=== PATIENT | male | born 1955 | race Caucasian/White ===

== ENCOUNTER 2018-02-11 10:16 | Inpatient (IN) | payer BC, SELFPAY ==
[~2018-02-11 10:16] MED LIST: ISOVUE-370 76%-LOCM 1 ML ONE; Iopamidol 370 76% 50 ML VIAL FS ONE
[2018-02-11] MEDS ORDERED: Ondansetron HCl/PF 4 MG/2 ML Vial ONE (10:55)
[2018-02-11] MEDS ORDERED: Morphine 4 MG/ML VIAL ONE ×3 (10:55→15:10)
[2018-02-11 11:02] LABS: #Lymphocytes 0.7 thou/uL (1.20-3.40); #Monocytes 0.5 thou/uL (0.11-0.59); #Neutrophils 13.4 thou/uL (1.40-6.50); %Basophils 0.2 % (0.0-1.0); %Lymphocytes 4.7 % (21.0-51.0); %Monocytes 3.4 % (0.0-10.0); %Neutrophils 91.6 % (42.0-75.0); Hemoglobin 16.7 g/dL (14.0-18.0); Mean Corpuscular HGB CONC 34.7 g/dL (32.0-36.0); Mean Corpuscular Hemoglobin 32.9 pg (27.0-31.0); Mean Corpuscular Volume 94.7 fL (78.0-98.0); Mean Platelet Volume 6.6 fL (7.4-10.4); Platelet Count 254 thou/uL (130-400); RBC Distribution Width 11.9 % (11.5-14.5); Red Blood Cell (RBC) Count 5.08 mill/uL (4.70-6.10); White Blood Cell (WBC) Count 14.7 thou/uL (4.8-10.8)
[2018-02-11 11:35] LABS: Troponin I Less than 0.010 ng/mL (< 0.028)
[2018-02-11 11:38] LABS: ALT (SGPT) 13 U/L (8-55); AST (SGOT) 12 U/L (5-34); Albumin 4.4 g/dL (3.4-4.8); Alkaline Phosphatase 93 U/L (40-150); Anion Gap 13 mmol/L (10-20); BUN (Urea Nitrogen) 11 mg/dL (8.4-25.7); Bilirubin, Total 0.7 mg/dL (0.2-1.2); Calc. Creatinine Clearance 0 mL/min (70-130); Calcium 9.9 mg/dL (7.8-10.44); Carbon Dioxide 25 mmol/L (23-31); Chloride 100 mmol/L (98-107); Estimated GFR-MDRD 81; Globulin 3.2 g/dL (2.4-3.5); Glucose 208 mg/dL (80-115); Lipase Less than 4 U/L (8-78); Potassium 4.1 mmol/L (3.5-5.1); Protein, Total 7.6 g/dL (5.8-8.1); Sodium 134 mmol/L (136-145)
--- NOTE | 2018-02-11 11:45 | RAD ---
CHEST 1 VIEW: Date: 02/11/18 HISTORY: Nausea and vomiting. COMPARISON: None. FINDINGS: Lungs are hyperinflated. There are chronic interstitial markings in the lung bases. Right upper lobe peripheral interstitial markings are present, which may reflect scarring. Coronary artery stents are present. No acute osseous abnormality. There appears to be some bronchiectasis in the right upper lobe. IMPRESSION: Obstructive pulmonary disease with fibrosis. POS: [facility]
[2018-02-11 13:01] LABS: Bilirubin Negative (Negative); Blood, Urine Trace (Negative); Clarity CLEAR (Clear); Glucose, Urine (Dipstick) 250 mg/dL (Negative); Leukocyte Negative (Negative); Nitrite Negative (Negative); Protein, Urine (Dipstick) Negative (Neg-Trace); Specific Gravity, Urine 1.019 (1.002-1.036); Urobilinogen 0.2 mg/dL (0.2-1.0); pH, Urine 6.5 (5.0-9.0)
[2018-02-11 13:03] LABS: Bacteria/HPF None Seen HPF (None Seen); Hyaline Casts/LPF 0-3 HYALINE CAST LPF (0-3 Hyaline); Squamous Epithelial 0-3 HPF (0-3); WBC/HPF 0-3 HPF (0-3)
--- NOTE | 2018-02-11 14:27 | CT ---
CT ABDOMEN AND PELVIS WITH CONTRAST: Date: 02/11/18 HISTORY: Right-sided abdominal pain. Nausea and vomiting. COMPARISON: None. FINDINGS: Lung bases are clear. No pericardial effusion. There is acute appendicitis with dilated hyperenhancing thick-walled appendix with two small appendic oliths at its tip, both measuring 3.0 mm. There is extensive periappendiceal inflammatory stranding. No macroperforation. The liver and gallbladder are unremarkable. Pancreas unremarkable. Adrenal glands are unremarkable. N o hydroureteronephrosis. Extensive vascular calcifications at the aortoiliac system. Large volume soft plaque. Prostate mildly enlarged. No acute osseous abnormality. IMPRESSION: Acute appendicitis with the appendix posterior to the cecum which extends craniad near the liver. The re are two separate 3.0 mm appendicoliths near the tip. An attempt to contact provider was performed at 1325 hours; however, patient's provider was unable to come to the phone. POS: [facility]
[2018-02-11] MEDS ORDERED: Piperacillin/Tazobactam 4.5 GM VIAL ONE (15:10)
[2018-02-11] MEDS ORDERED: Ondansetron ODT 4 MG TAB SL PRN (17:10)
[2018-02-11] MEDS ORDERED: Ondansetron HCl/PF 4 MG/2 ML Vial IVP PRN ×2 (17:10→17:14)
[2018-02-11] MEDS ORDERED: Acetaminophen 325 MG TAB PO PRN (17:10)
[2018-02-11] MEDS ORDERED: hydrALAZINE 20 MG/ML VIAL SLOW IVP PRN (17:14)
[2018-02-11] MEDS ORDERED: Famotidine/PF 20 mg/2ml Vial SLOW IVP PRN (17:14)
[2018-02-11 17:33] VITALS: BMI 20.9
[2018-02-11] MEDS: Morphine 4 MG/ML VIAL SLOW IVP PRN ×2 (17:46→22:25)
[2018-02-11] MEDS: Sodium Chloride 0.9% 1,000 ML IV SCH ×2 (17:49→20:44)
--- NOTE | 2018-02-11 18:29 | CON ---
DATE OF CONSULTATION: 02/11/2018 CARDIOLOGY CONSULTATION REASON FOR CONSULTATION: Preoperative evaluation. HISTORY OF PRESENT ILLNESS: Mr. Renteria is a pleasant 62-year-old white gentleman who comes to the [facility] for abdominal pain. He was diagnosed with acute appendicitis and is scheduled to have an appe ndectomy later this evening. He denies any chest pain, tightness, pressure. He has chronic shortnes s of breath, likely from some level of COPD as he continues to smoke. He also has a history of coron eliza artery disease with a stent placed by [facility] physician back in 2011. He followed up wit h them up until about a year to year and a half ago and he has been followed since. He has never had the symptoms he had back when he needed a stent. Currently, his only complaint is right lower quadr ant pain. PAST MEDICAL HISTORY: 1. Coronary artery disease. 2. Hypertension. SOCIAL HISTORY: Continues to smoke a pack a day. No alcohol or drugs. OUTPATIENT MEDICATIONS: None. ALLERGIES: No known drug allergies. REVIEW OF SYSTEMS: A 12-point review of systems was done and is all negative unless stated in the hi story of present illness. PHYSICAL EXAMINATION: VITAL SIGNS: Temperature 100.4, pulse 99, respiration rate 24, satting 89% on room air, blood pressu re 117/66. GENERAL: Awake, alert, oriented x3, in no distress. HEENT: Normocephalic, atraumatic. NECK: Supple. LUNGS: Clear. CARDIOVASCULAR: S1, S2. No S3, S4. No murmurs. ABDOMEN: Soft, tender in the right lower quadrant. EXTREMITIES: No edema. SKIN: Warm and dry. LABORATORY WORK: Reviewed. CBC with a white count of 14, 90% neutrophils, otherwise normal hemoglob in and hematocrit and platelet count. Chemistries unremarkable except for mildly low sodium of 134, glucose of 208. Troponin is undetectable. UA with 250 glucose and trace blood, otherwise unremarkab le. EKG was reviewed, normal sinus rhythm. Chest x-ray shows COPD with possible fibrosis. CT of the abdomen and pelvis was reviewed. There is acute appendicitis with the appendix posterior t o the cecum, mildly enlarged prostate, extensive vascular calcifications at the aortoiliac system wit h large volume soft plaque. Clear lung bases. No pericardial or pleural effusions. ASSESSMENT AND PLAN: 1. Preoperative evaluation. 2. Coronary artery disease. 3. Peripheral vascular disease. 4. Acute appendicitis. PLAN: 1. I do not think he is prohibitive risk at this time; however, he has a history of coronary artery disease with stents in 2011 and he continued to smoke a pack a day. He certainly is intermediate to high risk for surgery, but not prohibitive risk. I do not think he is having an acute coronary syndr ome and he is not in florid heart failure. He does have some level of COPD and it may be difficult t o extubate once the procedure is done. 2. Would proceed with surgery as scheduled given the emergent nature of an appendectomy in this sett ing. 3. No further testing required at this time. Thank you for letting us participate in the care of your patient. We will follow.
--- NOTE | 2018-02-11 18:51 | HP ---
The patient currently does not have a primary care physician. CHIEF COMPLAINT: Abdominal pain. HISTORY OF PRESENT ILLNESS: Mr. Renteria is a pleasant 62-year-old gentleman that has a history of cor onary artery disease as well as hypertension. He began having problems last night. He says that he started having some pain in the right side of his abdomen which started suddenly. He says he vomited about 9 times last night and could not get any sleep. This was not related to eating. Then the , he began having the right-sided pain once again. He showed up to work, but felt like he could not complete work because of the pain was so severe. He rated it about a 10/10. He thought it could be due to constipation because his last bowel movement was 3 days ago. But as a result, he ca me to the emergency room for evaluation. In the ER, he was evaluated, had a CT scan of the abdomen w hich showed findings consistent with an acute appendicitis as well as an elevated white blood cell co unt and he is being admitted for further evaluation and treatment. The patient denies having any fev ers; however, he says he has had some chills. He denies any hematemesis, no melena or dark stools re cently. He has a history of coronary artery disease. He had a stent placed about 2 years ago. At that time, he did have symptoms. He said he had pain in the left side of his chest which radiated into his lef t arm. He was also short of breath and this had happened at rest. He says that ever since having hi s stent placed, he has been feeling fine. He denies having any chest pain since then. He denies any dyspnea on exertion. He says he is able to walk a flight of steps without any difficulty. He can w alk "as far as he wants to." He denies waking up through the middle of the night short of breath. H e denies any lower extremity edema. He does have some occasional nocturnal leg cramps, but otherwise no complaints. He denies any feeling dizzy or weak. He does admit; however, he has not taken any m edications in months. He said he has lost his job and been unable to afford it. REVIEW OF SYSTEMS: All systems are reviewed and are negative except for that mentioned in the histor y of present illness. PAST MEDICAL HISTORY: Significant for hypertension and coronary artery disease. PAST SURGICAL HISTORY: He has had a cardiac stent placed. He says on 08/18/2015. He does not know what type of stent. ALLERGIES: No known drug allergies. SOCIAL HISTORY: He is , has two children. He smokes about a pack a day for 50 years. Denies any alcohol use. FAMILY HISTORY: Significant for ovarian cancer in his mother. MEDICATIONS: He is not really sure the names and doses of the medicines. He had been on aspirin and lisinopril and vitamins and some other medicines. PHYSICAL EXAMINATION: GENERAL: He is alert and oriented. He appears to be in no acute distress. He is well-developed and well-nourished. VITAL SIGNS: Blood pressure was 137/77, heart rate 76, respiratory rate of 18, temperature is 97.4. HEENT: Pupils are equal, round, and reactive. Extraocular muscles are intact. Sclerae are anicteri c. Throat: He has got dry mucous membranes. There is no erythema, no exudates. NECK: There was no adenopathy, no bruits. LUNGS: Clear to auscultation. I did not appreciate any wheezing or rales, no rhonchi. CARDIOVASCULAR: He had a normal S1, S2. There is no S3 or S4. No murmurs, clicks or rubs. ABDOMEN: Soft. He did have some right mid to lower quadrant tenderness. The abdomen on the right s haile was slightly more rigid with some mild voluntary guarding. Bowel sounds are present. There is n o organomegaly. EXTREMITIES: There is no edema, no clubbing, no cyanosis. Dorsalis pedis pulses were palpable in brandi th the right and left lower extremities. There were no skin lesions. Skin is warm. NEUROLOGIC: Muscle strength is 5/5 in both upper and lower extremities. It is nonfocal. SKIN AND INTEGUMENT: There were no skin changes and no rashes. LABORATORY: White blood cell count 14.7, hemoglobin 16.7, hematocrit is 48.1, platelet count is 254. Sodium 134, potassium 4.1, chloride is 100, CO2 is 25, BUN is 11, creatinine 0.95, glucose is 208. Lipase was less than 4. Liver function tests were all negative. Troponin was less than 0.010. Uri nalysis was significant for trace blood. EKG is sinus rhythm, the rate is 82. There was no evidence of any ST wave abnormalities. He had a chest x-ray, the lungs were mildly hyperexpanded, but there was some significant scattered airspace disease. No pleural effusion. Heart size is normal. ASSESSMENT AND PLAN: This is a pleasant 62-year-old gentleman who presents to the emergency room wit h the sudden onset of the severe lower abdominal pain on the right side, was found to have findings c onsistent with acute appendicitis. He will need to be taken urgently to surgery. He has a history o f coronary artery disease, but has been essentially lost to follow up within the last few months. Ho wever, he has not had any signs of angina nor does he have any clinical evidence or historical eviden ce of heart failure. His heart size is normal. Troponin is negative; however, he has not been on an y medications for coronary artery disease, especially the aspirin and for this reason, he will have a higher cardiac risk than normal; however, I do not believe that should preclude surgery. He also bourne s a long history of smoking and radiographic evidence consistent with chronic obstructive pulmonary d isease. I did inform the patient as well as his at the bedside that he will be at higher risk f or pulmonary complications such as prolonged extubation and possibly need for Pulmonary consultation as well. The same goes for his heart disease. He may require Cardiology consultation postop. After surgery, I would recommend placing him on a low dose aspirin as well as a low dose beta apolinar, neb ulizer treatments as needed, as well as a statin if tolerated. We will be happy to follow along with you.
[2018-02-11] MEDS: Piperacillin/Tazobactam 3.375 GM in Sodium Chloride 0.9% 100 ML IVPB SCH (20:42)
[2018-02-11] MEDS ORDERED: Piperacillin/Tazobactam 4.5 GM in Sodium Chloride 0.9% 100 ML IVPB SCH (23:00)
[2018-02-12] MEDS: Morphine 4 MG/ML VIAL SLOW IVP PRN (02:13)
[2018-02-12] MEDS: Piperacillin/Tazobactam 3.375 GM in Sodium Chloride 0.9% 100 ML IVPB SCH ×4 (02:17→21:20)
--- NOTE | 2018-02-12 04:01 | HP ---
CHIEF COMPLAINT: Abdominal pain. HISTORY OF PRESENT ILLNESS: Mr. Renteria is a 62-year-old man with abdominal pain since yesterday. Th is is located in the right lower quadrant and waxes and wanes somewhat in severity but was not going away. He had multiple episodes of nausea and vomiting last night and this morning the pain is sharp and seems to be getting worse, so he came to the emergency room. It is exacerbated by movement. He has had some subjective chills but no high fevers. PAST MEDICAL HISTORY: Hypertension, coronary artery disease, COPD, hyperlipidemia. PAST SURGICAL HISTORY: Heart stent 2 years ago, patient had fairly classic anginal symptoms at that time and has not had any since. SOCIAL HISTORY: The patient still smokes 1 pack per day. Does not use alcohol or use drugs. FAMILY HISTORY: Noncontributory. ALLERGIES: He has no known drug allergies. MEDICATIONS: He is not taking any medications. He does have a list of medications that he is [facility] to be taking, but has been unable to purchase for financial reasons. PHYSICAL EXAMINATION: VITAL SIGNS: The patient was afebrile in the emergency room. He did have a low grade fever of 100.4 since admission and is currently 98.9, heart rate 99, respirations 16, 97% saturated on 2.5 liters n raheem cannula, blood pressure 118/65. GENERAL: Reveals a pleasant gentleman in no acute distress. He is not flushed or toxic in appearanc e. He is not jaundiced or icteric. HEENT: Unremarkable. NECK: Supple, without lymphadenopathy or thyroid nodules. HEART: Regular in its rate and rhythm. I do not appreciate any murmurs, rubs, or gallops. LUNGS: Clear to auscultation, although his breath sounds are somewhat distant. ABDOMEN: Soft and nondistended. He is tender to palpation in the right abdomen with some guarding a nd mild rigidity. EXTREMITIES: Warm and well perfused. He has normal pedal pulses. NEUROLOGIC: No focal deficits. PSYCHIATRIC: Alert, oriented, and appropriate. REVIEW OF SYSTEMS: Ten-system review of systems is negative except per HPI. Specifically, the patie nt denies dyspnea on exertion or chest, shoulder, or jaw pain with exertion. He states that he can w alk indefinitely and climb a flight of stairs without stopping and he denies claudication or rest sal n. LABORATORY AND X-RAY FINDINGS: White count is elevated at 14.7, hematocrit 48.1, platelets 254. Eugenia ctrolytes are unremarkable. Glucose is slightly high at 208. LFTs are normal and lipase is low. UA is positive for glucose and trace blood, but otherwise clear. CT images are reviewed and I agree wi th the written report. The patient has a slightly dilated appendix with some periappendiceal strandi ng and there is an appendicolith visible. He has vascular calcification, but no other acute findings . ASSESSMENT: Acute appendicitis. PLAN: Laparoscopic appendectomy. The patient has been evaluated by Dr. Jean of [facility] and she feels that his cardiac risks are acceptable. Certainly, he does not have any symptoms similar to what he was experiencing before his heart catheterization and his functional status is goo d. He is on scheduled Zosyn and has been posted for the operating room. The inherent risks of lapar oscopic appendectomy were discussed with the patient and his . These include but are not limited to bleeding, infection, risks of anesthesia, damage to nearby structures including bowel and blood v essels, need for open surgery or other procedures. He understands and accepts these risks and wishes to proceed. We did discuss nonoperative treatment with its inherent risks and benefits and he was n ot interested in pursuing that.
[2018-02-12] MEDS ORDERED: Fentanyl 100 MCG/2 ML VIAL ONE (04:19)
[2018-02-12] MEDS: Sodium Chloride 0.9% 1,000 ML IV SCH ×2 (04:19→14:28)
[2018-02-12] MEDS ORDERED: Bupivacaine/Epinephrine 0.25% 30 ML VIAL ONE (04:40)
[2018-02-12] MEDS ORDERED: Phenylephrine HCL 10 MG/ML VIAL ONE (05:08)
[2018-02-12] MEDS ORDERED: Promethazine HCl 25 MG/ML VIAL SLOW IVP PRN (06:38)
[2018-02-12] MEDS ORDERED: Ondansetron HCl/PF 4 MG/2 ML Vial IVP PRN (06:38)
[2018-02-12] MEDS ORDERED: Promethazine HCl 25 MG/ML VIAL IM PRN (06:38)
[2018-02-12] MEDS ORDERED: Acetaminophen 1,000 MG in Premix Bag 1 BAG IVPB PRN (07:52)
[2018-02-12] MEDS: Enoxaparin Sodium 40 MG/0.4 ML SYRINGE SC SCH (08:27)
[2018-02-12 08:48] LABS: #Lymphocytes 0.6 thou/uL (1.20-3.40); #Monocytes 0.4 thou/uL (0.11-0.59); #Neutrophils 12.1 thou/uL (1.40-6.50); %Basophils 0.2 % (0.0-1.0); %Eosinophils 0.1 % (0.0-10.0); %Lymphocytes 4.5 % (21.0-51.0); %Neutrophils 92.1 % (42.0-75.0); Hemoglobin 14.6 g/dL (14.0-18.0); Mean Corpuscular HGB CONC 34.2 g/dL (32.0-36.0); Mean Corpuscular Hemoglobin 33.2 pg (27.0-31.0); Mean Corpuscular Volume 97.2 fL (78.0-98.0); Mean Platelet Volume 6.6 fL (7.4-10.4); Platelet Count 193 thou/uL (130-400); RBC Distribution Width 12.2 % (11.5-14.5); White Blood Cell (WBC) Count 13.1 thou/uL (4.8-10.8)
[2018-02-12 08:50] LABS: Anion Gap 15 mmol/L (10-20); BUN (Urea Nitrogen) 10 mg/dL (8.4-25.7); Calc. Creatinine Clearance 81 mL/min (70-130); Calcium 8.8 mg/dL (7.8-10.44); Carbon Dioxide 20 mmol/L (23-31); Chloride 106 mmol/L (98-107); Estimated GFR-MDRD Greater than 90; Glucose 171 mg/dL (80-115); Potassium 4.5 mmol/L (3.5-5.1); Sodium 136 mmol/L (136-145)
--- NOTE | 2018-02-12 13:40 | PDOC.PN ---
- Subjective Encounter Start Date: 02/12/18 Encounter Start Time: 09:00 Pt seen for followup re: hypertension. Feels better. Denies chest pain, shortness of breath, fevers or chills. - Objective Resuscitation Status: Resuscitation Status FULL:Full Resuscitation MAR Reviewed: Yes Vital Signs & Weight: Vital Signs (12 hours) Temp Pulse Resp BP Pulse Ox 02/12/18 12:21 97.8 F 84 18 114/68 95 02/12/18 08:00 98 F 81 16 02/12/18 07:46 98 F 81 16 101/62 96 02/12/18 04:00 98.4 F 93 16 102/63 95 Weight Weight 138 lb I&O: 02/11/18 02/12/18 02/13/18 06:59 06:59 06:59 Intake Total 900 Output Total 700 Balance 200 Result Diagrams: 02/12/18 08:16 02/12/18 08:16 Additional Labs: Accuchecks 02/11/18 20:45 POC Glucose 153 H Labs reviewed by me Phys Exam - Physical Examination Constitutional: NAD HEENT: moist MMs, sclera anicteric, oral pharynx no lesions, 2+ tonsils Neck: no nodes, no JVD, supple, full ROM Respiratory: no wheezing, no rales, no rhonchi, clear to auscultation bilateral Cardiovascular: RRR, no rub S1, s2 Gastrointestinal: soft, non-tender, no distention, positive bowel sounds drain+ Neurological: moves all 4 limbs Psychiatric: normal affect, A&O x 3 Dx/Plan (1) HTN (hypertension) Code(s): I10 - ESSENTIAL (PRIMARY) HYPERTENSION Status: Acute Comment: controlled (2) CAD (coronary artery disease) Code(s): I25.10 - ATHSCL HEART DISEASE OF [place] CORONARY ARTERY W/O ANG PCTRS Status: Chronic Comment: stable, denies chest pain (3) Tobacco use Code(s): Z72.0 - TOBACCO USE Status: Chronic Comment: start nicotine replacement therapy (4) Hyponatremia Code(s): E87.1 - HYPO-OSMOLALITY AND HYPONATREMIA Status: Resolved - Plan continue antibiotics, DVT proph w/lovenox * . s/p appendectomy Review of Systems - Review of Systems Constitutional: negative: fever, chills, sweats, weakness, malaise Respiratory: negative: Cough, Shortness of Breath, SOB with Excertion, Pleuritic Pain, Wheezing Cardiovascular: negative: chest pain, palpitations, orthopnea, paroxysmal nocturnal dyspnea, edema, light headedness Gastrointestinal: negative: Nausea, Vomiting, Abdominal Pain, Diarrhea, Constipation, Melena, Hematochezia Genitourinary: negative: Dysuria, Frequency, Incontinence, Hematuria, Retention Skin: negative: Rash, Lesions, Dash, Bruising - Medications/Allergies Allergies/Adverse Reactions: Allergies Allergy/AdvReac Type Severity Reaction Status Date / Time No Known Allergies Allergy Unverified 02/11/18 17:09 Medications: Current Medications Hydrocodone Bitart/Acetaminophen ([place] 5/325) 1 tab PO Q4H PRN PRN Reason: Moderate Pain (4-6) Hydrocodone Bitart/Acetaminophen ([place] 5/325) 2 tab PO Q4H PRN PRN Reason: Moderate to Severe Pain (6-10) Albuterol/Ipratropium (Duoneb) 3 ml NEB [id number] PRN PRN Reason: SOB &/or Wheezing Albuterol/Ipratropium (Duoneb) 3 ml NEB P1ZA-OF [facility] Last Admin: 02/12/18 06:25 Dose: Not Given Enoxaparin Sodium (Lovenox) 40 mg SC 0900 [facility] Last Admin: 02/12/18 08:27 Dose: 40 mg Famotidine (Pepcid) 20 mg SLOW IVP Q12HR PRN PRN Reason: Heartburn or Indigestion Hydralazine HCl (Apresoline) 10 mg SLOW IVP Q4H PRN PRN Reason: Systolic BP > 180 Sodium Chloride (Normal Saline 0.9%) 1,000 mls @ 100 mls/hr IV .Q10H [facility] Stop: 02/13/18 03:05 Last Admin: 02/12/18 04:19 Dose: Not Given Piperacillin Sod/Tazobactam (Sod 3.375 gm/ Sodium Chloride) 100 mls @ 200 mls/ hr IVPB 0300,0900,1500,2100 [facility] Last Admin: 02/12/18 08:26 Dose: 100 mls Acetaminophen 1,000 mg/ Device 100 mls @ 400 mls/hr IVPB Q6H PRN PRN Reason: Fever/Mild Pain Stop: 02/13/18 07:53 Morphine Sulfate (Morphine) 2 mg SLOW IVP Q4H PRN PRN Reason: Pain Ondansetron HCl (Zofran Odt) 4 mg SL Q6H PRN PRN Reason: Nausea/Vomiting Stop: 02/14/18 03:05 Ondansetron HCl (Zofran) 4 mg IVP Q6H PRN PRN Reason: Nausea/Vomiting Sodium Chloride (Flush - Normal Saline) 10 ml IVF PRN PRN PRN Reason: Saline Flush Stop: 02/16/18 03:05
[2018-02-12] MEDS: HYDROcodone/Acetaminophen 5/325 mg Tablet PO PRN ×2 (14:33→21:20)
[2018-02-13] MEDS: Sodium Chloride 0.9% 1,000 ML IV SCH (01:02)
[2018-02-13] MEDS: HYDROcodone/Acetaminophen 5/325 mg Tablet PO PRN ×4 (01:19→20:38)
[2018-02-13] MEDS: Piperacillin/Tazobactam 3.375 GM in Sodium Chloride 0.9% 100 ML IVPB SCH ×4 (03:58→20:30)
[2018-02-13 05:28] LABS: #Lymphocytes 1.1 thou/uL (1.20-3.40); #Monocytes 0.4 thou/uL (0.11-0.59); #Neutrophils 8.7 thou/uL (1.40-6.50); %Basophils 0.1 % (0.0-1.0); %Eosinophils 0.2 % (0.0-10.0); %Lymphocytes 10.9 % (21.0-51.0); %Monocytes 4.2 % (0.0-10.0); %Neutrophils 84.7 % (42.0-75.0); Hemoglobin 12.3 g/dL (14.0-18.0); Mean Corpuscular HGB CONC 34.7 g/dL (32.0-36.0); Mean Corpuscular Hemoglobin 33.4 pg (27.0-31.0); Mean Corpuscular Volume 96.1 fL (78.0-98.0); Mean Platelet Volume 6.7 fL (7.4-10.4); Platelet Count 164 thou/uL (130-400); Red Blood Cell (RBC) Count 3.68 mill/uL (4.70-6.10); White Blood Cell (WBC) Count 10.3 thou/uL (4.8-10.8)
[2018-02-13] MEDS: Enoxaparin Sodium 40 MG/0.4 ML SYRINGE SC SCH (08:01)
[2018-02-13] MEDS: Nicotine 21 MG PATCH TD SCH (08:03)
[2018-02-13] MEDS ORDERED: Dextrose 5% in Water 1,000 ML IV PRN (10:39)
[2018-02-13] MEDS ORDERED: Dextrose 50% Abboject 50 ML SYRINGE IVP PRN (10:39)
[2018-02-13] MEDS ORDERED: Insulin Regular 300 UNITS/3 ML VIAL SC PRN ×2 (10:39)
[2018-02-13 10:48] LABS: Hemoglobin A1c 5.8 % (4.0-6.0)
--- NOTE | 2018-02-13 13:16 | PDOC.PN ---
- Subjective Encounter Start Date: 02/13/18 Encounter Start Time: 08:40 Pt seen for followup re: hypertension. No complaints today. - Objective Resuscitation Status: Resuscitation Status FULL:Full Resuscitation MAR Reviewed: Yes Vital Signs & Weight: Vital Signs (12 hours) Temp Pulse Resp BP Pulse Ox 02/13/18 11:35 97.9 F 86 16 131/78 93 L 02/13/18 08:00 97.9 F 86 16 94 L 02/13/18 07:54 98.3 F 83 18 113/70 90 L 02/13/18 06:50 65 12 94 L 02/13/18 04:21 98.1 F 71 17 126/71 94 L Weight Weight 138 lb I&O: 02/12/18 02/13/18 02/14/18 06:59 06:59 06:59 Intake Total 900 1670 Output Total 700 1190 Balance 200 480 Result Diagrams: 02/13/18 05:10 02/12/18 08:16 Additional Labs: Accuchecks 02/13/18 11:42 POC Glucose 159 H labs reviewed by me Phys Exam - Physical Examination Constitutional: NAD HEENT: moist MMs Neck: supple Respiratory: clear to auscultation bilateral Cardiovascular: RRR Gastrointestinal: soft Drain+ Neurological: moves all 4 limbs Skin: no rash Dx/Plan (1) HTN (hypertension) Code(s): I10 - ESSENTIAL (PRIMARY) HYPERTENSION Status: Acute Comment: controlled and at goal (2) CAD (coronary artery disease) Code(s): I25.10 - ATHSCL HEART DISEASE OF [place] CORONARY ARTERY W/O ANG PCTRS Status: Chronic Comment: stable (3) Tobacco use Code(s): Z72.0 - TOBACCO USE Status: Chronic Comment: on nicotine replacement therapy (4) Hyponatremia Code(s): E87.1 - HYPO-OSMOLALITY AND HYPONATREMIA Status: Resolved - Plan * . Review of Systems - Review of Systems Respiratory: negative: Cough, Shortness of Breath, SOB with Excertion, Pleuritic Pain, Wheezing Cardiovascular: negative: chest pain, palpitations, orthopnea, paroxysmal nocturnal dyspnea, edema, light headedness - Medications/Allergies Allergies/Adverse Reactions: Allergies Allergy/AdvReac Type Severity Reaction Status Date / Time No Known Allergies Allergy Unverified 02/11/18 17:09 Medications: Current Medications Hydrocodone Bitart/Acetaminophen ([place] 5/325) 1 tab PO Q4H PRN PRN Reason: Moderate Pain (4-6) Last Admin: 02/12/18 21:20 Dose: 1 tab Hydrocodone Bitart/Acetaminophen ([place] 5/325) 2 tab PO Q4H PRN PRN Reason: Moderate to Severe Pain (6-10) Last Admin: 02/13/18 07:18 Dose: 2 tab Albuterol/Ipratropium (Duoneb) 3 ml NEB [id number] PRN PRN Reason: SOB &/or Wheezing Albuterol/Ipratropium (Duoneb) 3 ml NEB [id number] [facility] Last Admin: 02/13/18 06:50 Dose: 3 ml Dextrose/Water (Dextrose 50%) 25 gm IVP PRN PRN PRN Reason: HYPOGLYCEMIA PROTOCOL Enoxaparin Sodium (Lovenox) 40 mg SC 0900 [facility] Last Admin: 02/13/18 08:01 Dose: 40 mg Famotidine (Pepcid) 20 mg SLOW IVP Q12HR PRN PRN Reason: Heartburn or Indigestion Glucagon (Glucagon) 1 mg IM PRN PRN PRN Reason: HYPOGLYCEMIA PROTOCOL Hydralazine HCl (Apresoline) 10 mg SLOW IVP Q4H PRN PRN Reason: Systolic BP > 180 Piperacillin Sod/Tazobactam (Sod 3.375 gm/ Sodium Chloride) 100 mls @ 200 mls/ hr IVPB 0300,0900,1500,2100 [facility] Last Admin: 02/13/18 08:02 Dose: 100 mls Dextrose/Water (D5w) 1,000 mls @ 0 mls/hr IV INF PRN PRN Reason: HYPOGLYCEMIA PROTOCOL Insulin Human Regular (Humulin R) 0 units SC .MILD SLIDING PRN; Protocol PRN Reason: MILD SLIDING SCALE Insulin Human Regular (Humulin R) 0 units SC .BEDTIME SLIDING SC PRN; Protocol PRN Reason: BEDTIME SLIDING SCALE Morphine Sulfate (Morphine) 2 mg SLOW IVP Q4H PRN PRN Reason: Pain Nicotine (Nicoderm Patch) 21 mg TD DAILY [facility] Last Admin: 02/13/18 08:03 Dose: 21 mg Ondansetron HCl (Zofran Odt) 4 mg SL Q6H PRN PRN Reason: Nausea/Vomiting Stop: 02/14/18 03:05 Ondansetron HCl (Zofran) 4 mg IVP Q6H PRN PRN Reason: Nausea/Vomiting Sodium Chloride (Flush - Normal Saline) 10 ml IVF PRN PRN PRN Reason: Saline Flush Stop: 02/16/18 03:05
--- NOTE | 2018-02-13 15:55 | PDOC.GSPN ---
Surgery Progress Note: Subj - Subjective Narrative: Patient is feeling better today. He is passing flatus but feels like he might need help to have a bowel movement. He is tolerating his regular diet without any nausea or bloating. He has been afebrile with normal vital signs and his white count has come down somewhat from 13-10.3 although he still has a left shift. His blood sugars have been moderately elevated but his hemoglobin A1c is less than 6. His incisions are clean and dry and his DORI output is serous. Plan is to continue with current antibiotics. If his white count is normal tomorrow and he is afebrile over the next 24 hours and may DC the DORI and discharge him home. Surgery Progress Note: Obj - Vital signs Vital signs: Vital Signs - Most Recent Temp Pulse Resp BP Pulse Ox 97.5 F L 95 18 153/87 H 92 L 02/13/18 15:20 02/13/18 15:20 02/13/18 15:20 02/13/18 15:20 02/13/18 15:20 Surgery Progress Note: Results - Labs Result Diagrams: 02/13/18 05:10 02/12/18 08:16 Lab results: Laboratory Results - last 24 hr 02/13/18 02/13/18 02/13/18 05:10 05:10 11:42 WBC 10.3 RBC 3.68 L Hgb 12.3 L Hct 35.4 L MCV 96.1 MCH 33.4 H MCHC 34.7 RDW 12.0 Plt Count 164 MPV 6.7 L Neutrophils % 84.7 H Lymphocytes % 10.9 L Monocytes % 4.2 Eosinophils % 0.2 Basophils % 0.1 Neutrophils # 8.7 H Lymphocytes # 1.1 L Monocytes # 0.4 Eosinophils # 0.0 Basophils # 0.0 POC Glucose 159 H Hemoglobin A1c 5.8
[2018-02-13] MEDS ORDERED: Polyethylene Glycol 3350 17 GM Packet PO SCH (17:15)
[2018-02-13] MEDS: Docusate 100 MG CAP PO SCH (20:29)
[2018-02-14] MEDS: HYDROcodone/Acetaminophen 5/325 mg Tablet PO PRN ×3 (00:49→15:42)
[2018-02-14] MEDS: Piperacillin/Tazobactam 3.375 GM in Sodium Chloride 0.9% 100 ML IVPB SCH ×3 (03:51→14:13)
[2018-02-14] MEDS: Nicotine 21 MG PATCH TD SCH (08:39)
[2018-02-14] MEDS: Docusate 100 MG CAP PO SCH (08:39)
[2018-02-14] MEDS: Enoxaparin Sodium 40 MG/0.4 ML SYRINGE SC SCH (08:53)
[2018-02-14] MEDS ORDERED: Polyethylene Glycol 3350 17 GM Packet PO SCH (09:00)
[2018-02-14 10:46] LABS: #Eosinphils 0.2 thou/uL (0.0-0.7); #Monocytes 0.4 thou/uL (0.11-0.59); %Basophils 0.4 % (0.0-1.0); %Eosinophils 2.2 % (0.0-10.0); %Lymphocytes 13.2 % (21.0-51.0); %Monocytes 4.7 % (0.0-10.0); %Neutrophils 79.5 % (42.0-75.0); Hemoglobin 14.1 g/dL (14.0-18.0); Mean Corpuscular HGB CONC 34.7 g/dL (32.0-36.0); Mean Corpuscular Hemoglobin 33.1 pg (27.0-31.0); Mean Corpuscular Volume 95.6 fL (78.0-98.0); Mean Platelet Volume 6.4 fL (7.4-10.4); Platelet Count 215 thou/uL (130-400); Red Blood Cell (RBC) Count 4.25 mill/uL (4.70-6.10); White Blood Cell (WBC) Count 7.6 thou/uL (4.8-10.8)
--- NOTE | 2018-02-14 10:49 | EKG ---
Test Reason : Blood Pressure : / mmHG Vent. Rate : 091 BPM Atrial Rate : 091 BPM P-R Int : 134 ms QRS Dur : 100 ms QT Int : 362 ms P-R-T Axes : 077 081 062 degrees QTc Int : 445 ms Normal sinus rhythm Normal ECG When compared with ECG of 16-JUL-2007 14:29, Nonspecific T wave abnormality no longer evident in Lateral leads Confirmed by DR. Kelli MCLEOD ([id number]), non linear editor TOYA ORR ([id number]) on 02/14/2018 10:49:11 AM Referred By: LORI Confirmed By:DR. Kelli MCLEOD
[2018-02-14 11:46] VITALS: TEMP 98.2
--- NOTE | 2018-02-14 13:15 | PDOC.PN ---
- Subjective Encounter Start Date: 02/14/18 Encounter Start Time: 07:40 Pt seen for followup re: hypertension. Denies any complaints, had bowel movement earlier. - Objective Resuscitation Status: Resuscitation Status FULL:Full Resuscitation MAR Reviewed: Yes Vital Signs & Weight: Vital Signs (12 hours) Temp Pulse Resp BP Pulse Ox 02/14/18 12:26 87 16 90 L 02/14/18 11:45 98.2 F 92 20 159/85 H 92 L 02/14/18 08:11 97.6 F 92 20 146/78 H 02/14/18 08:00 97.6 F 92 20 02/14/18 07:10 92 L 02/14/18 07:08 83 16 92 L 02/14/18 04:28 98.6 F 84 18 117/62 92 L Weight Weight 138 lb I&O: 02/13/18 02/14/18 02/15/18 06:59 06:59 06:59 Intake Total 1670 1360 Output Total 1190 475 155 Balance 480 885 -155 Result Diagrams: 02/14/18 10:31 02/12/18 08:16 Additional Labs: Accuchecks 02/14/18 02/13/18 02/13/18 06:07 21:00 15:57 POC Glucose 105 164 H 189 H Labs reviewed by me Phys Exam - Physical Examination Constitutional: NAD HEENT: moist MMs Neck: supple Respiratory: clear to auscultation bilateral Cardiovascular: RRR drain Neurological: moves all 4 limbs Psychiatric: normal affect Dx/Plan (1) HTN (hypertension) Code(s): I10 - ESSENTIAL (PRIMARY) HYPERTENSION Status: Acute Comment: blood pressure slowly climbing. Need to restart patient's home antihypertensives after clarification. (2) CAD (coronary artery disease) Code(s): I25.10 - ATHSCL HEART DISEASE OF [place] CORONARY ARTERY W/O ANG PCTRS Status: Chronic Comment: stable (3) Tobacco use Code(s): Z72.0 - TOBACCO USE Status: Chronic Comment: on nicotine replacement therapy (4) Hyperglycemia Code(s): R73.9 - HYPERGLYCEMIA, UNSPECIFIED Status: Chronic Comment: No evidence of diabetes mellitus. Hyperglycemia likley catecholamine-induced. (5) Hyponatremia Code(s): E87.1 - HYPO-OSMOLALITY AND HYPONATREMIA Status: Resolved - Plan * . Review of Systems - Review of Systems Respiratory: negative: Cough, Shortness of Breath, SOB with Excertion, Pleuritic Pain, Wheezing Cardiovascular: negative: chest pain, palpitations, orthopnea, paroxysmal nocturnal dyspnea, edema, light headedness - Medications/Allergies Allergies/Adverse Reactions: Allergies Allergy/AdvReac Type Severity Reaction Status Date / Time No Known Allergies Allergy Unverified 02/11/18 17:09 Medications: Current Medications Hydrocodone Bitart/Acetaminophen (Holly 5/325) 1 tab PO Q4H PRN PRN Reason: Moderate Pain (4-6) Last Admin: 02/12/18 21:20 Dose: 1 tab Hydrocodone Bitart/Acetaminophen (Holly 5/325) 2 tab PO Q4H PRN PRN Reason: Moderate to Severe Pain (6-10) Last Admin: 02/14/18 06:17 Dose: 2 tab Albuterol/Ipratropium (Duoneb) 3 ml NEB [id number] PRN PRN Reason: SOB &/or Wheezing Albuterol/Ipratropium (Duoneb) 3 ml NEB [id number] COUNT INCLUDES THE [facility] Last Admin: 02/14/18 12:26 Dose: 3 ml Dextrose/Water (Dextrose 50%) 25 gm IVP PRN PRN PRN Reason: HYPOGLYCEMIA PROTOCOL Docusate Sodium (Colace) 100 mg PO BID COUNT INCLUDES THE [facility] Last Admin: 02/14/18 08:39 Dose: 100 mg Enoxaparin Sodium (Lovenox) 40 mg SC 0900 COUNT INCLUDES THE [facility] Last Admin: 02/14/18 08:53 Dose: 40 mg Famotidine (Pepcid) 20 mg PO BID COUNT INCLUDES THE [facility] Glucagon (Glucagon) 1 mg IM PRN PRN PRN Reason: HYPOGLYCEMIA PROTOCOL Hydralazine HCl (Apresoline) 10 mg SLOW IVP Q4H PRN PRN Reason: Systolic BP > 180 Piperacillin Sod/Tazobactam (Sod 3.375 gm/ Sodium Chloride) 100 mls @ 200 mls/ hr IVPB 0300,0900,1500,2100 COUNT INCLUDES THE [facility] Last Admin: 02/14/18 08:37 Dose: 100 mls Dextrose/Water (D5w) 1,000 mls @ 0 mls/hr IV INF PRN PRN Reason: HYPOGLYCEMIA PROTOCOL Insulin Human Regular (Humulin R) 0 units SC .MILD SLIDING PRN; Protocol PRN Reason: MILD SLIDING SCALE Insulin Human Regular (Humulin R) 0 units SC .BEDTIME SLIDING SC PRN; Protocol PRN Reason: BEDTIME SLIDING SCALE Morphine Sulfate (Morphine) 2 mg SLOW IVP Q4H PRN PRN Reason: Pain Last Admin: 02/13/18 18:30 Dose: 2 mg Nicotine (Nicoderm Patch) 21 mg TD DAILY COUNT INCLUDES THE [facility] Last Admin: 02/14/18 08:39 Dose: 21 mg Ondansetron HCl (Zofran) 4 mg IVP Q6H PRN PRN Reason: Nausea/Vomiting Polyethylene Glycol (Miralax) 17 gm PO DAILY COUNT INCLUDES THE [facility] Last Admin: 02/14/18 08:38 Dose: 17 gm Sodium Chloride (Flush - Normal Saline) 10 ml IVF PRN PRN PRN Reason: Saline Flush Stop: 02/16/18 03:05
[2018-02-14] MEDS ORDERED: Amlodipine 5 MG TAB PO SCH (13:30)
[2018-02-14 17:05] VITALS: BP 155/87
[2018-02-14] MEDS ORDERED: Famotidine 20 MG TAB PO SCH (21:00)
[2018-02-15] MEDS ORDERED: Amlodipine 5 MG TAB PO SCH (09:00)
== END 2018-02-14 17:50 | disposition home or self-care (01) | DRG 343 ==
LOC: ERS 10:16 → SURG B 15:37
PROVIDERS: ADMIT Surgery; ATTEND Surgery
PROC: 0DTJ4ZZ Resection of Appendix, Percutaneous Endoscopic Approach (ICD-10-PCS; principal; 2018-02-12)
DX: K35.80 Unspecified acute appendicitis (principal); I25.10 Atherosclerotic heart disease of native coronary artery without angina pectoris; I10 Essential (primary) hypertension; F17.210 Nicotine dependence, cigarettes, uncomplicated; I73.9 Peripheral vascular disease, unspecified
CPT/HCPCS: 36415; 36416; 71045; 74177; 80048; 80053; 81003; 81015; 82553; 83036; 83690; 84484; 85025; 87070; 87077; 87186; 87205; 93005; 93010; 94640; 96361; 96365; 96375; 96376; 99406; J1650; J2270; J2370; J2405; J2543; J3010; J7050; J7620

== ENCOUNTER 2019-02-20 06:16 | Emergency (ER) | payer SELFPAY ==
[2019-02-20] MEDS ORDERED: Meclizine HCl 25 MG TAB ONE (06:41)
[2019-02-20 07:41] LABS: #Basophils 0.1 thou/uL (0.0-0.2); #Eosinphils 0.5 thou/uL (0.0-0.7); #Lymphocytes 1.7 thou/uL (1.20-3.40); #Monocytes 0.6 thou/uL (0.11-0.59); %Basophils 0.9 % (0.0-1.0); %Eosinophils 6.8 % (0.0-10.0); %Lymphocytes 24.9 % (21.0-51.0); %Monocytes 8.2 % (0.0-10.0); %Neutrophils 59.3 % (42.0-75.0); Hemoglobin 15.3 g/dL (14.0-18.0); Mean Corpuscular Hemoglobin 32.3 pg (27.0-31.0); Mean Corpuscular Volume 94.9 fL (78.0-98.0); Mean Platelet Volume 6.6 fL (7.4-10.4); Platelet Count 262 thou/uL (130-400); RBC Distribution Width 12.2 % (11.5-14.5); Red Blood Cell (RBC) Count 4.75 mill/uL (4.70-6.10); White Blood Cell (WBC) Count 6.7 thou/uL (4.8-10.8)
[2019-02-20 08:01] LABS: ALT (SGPT) 12 U/L (8-55); AST (SGOT) 10 U/L (5-34); Albumin 3.9 g/dL (3.4-4.8); Alkaline Phosphatase 89 U/L (40-150); Anion Gap 13 mmol/L (10-20); BUN (Urea Nitrogen) 20 mg/dL (8.4-25.7); Bilirubin, Total 0.2 mg/dL (0.2-1.2); Calc. Creatinine Clearance 0 mL/min (70-130); Calcium 9.2 mg/dL (7.8-10.44); Carbon Dioxide 24 mmol/L (23-31); Chloride 105 mmol/L (98-107); Estimated GFR-MDRD 72; Globulin 2.7 g/dL (2.4-3.5); Glucose 166 mg/dL (80-115); Potassium 4.2 mmol/L (3.5-5.1); Protein, Total 6.6 g/dL (5.8-8.1); Sodium 138 mmol/L (136-145)
--- NOTE | 2019-02-20 09:13 | CT ---
CT OF THE BRAIN WITHOUT CONTRAST: INDICATION: History of dizziness. COMPARISON: None. 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 There is mild chronic small -vessel white matter ischemic change. No acute infarct, hemorrhage, or hydrocephalus is present. Th e septum pellucidum and third ventricle is midline. The skull is intact. There is slight pneumatiza tion of the right mastoid air cells. No diffusion is evident. Visualized paranasal sinuses are johan r. IMPRESSION: 1. No acute intracranial abnormality. 2. Mild chronic small-vessel white matter ischemic change. POS: BH
[2019-02-20 09:28] LABS: Bacteria/HPF None Seen HPF (None Seen); Bilirubin Negative (Negative); Blood, Urine Trace (Negative); Clarity Clear (Clear); Glucose, Urine (Dipstick) 300 mg/dL (Negative); Leukocyte Negative Leu/uL (Negative); Nitrite Negative (Negative); Protein, Urine (Dipstick) 10 mg/dL (Neg-Trace); Squamous Epithelial None Seen HPF (0-3); Urobilinogen Normal mg/dL (Less than 2); WBC/HPF 0-3 HPF (0-3)
[2019-02-20] MEDS ORDERED: Acetaminophen 500 MG TAB ONE (10:25)
== END 2019-02-20 13:38 | disposition home or self-care (01) ==
LOC: ERS 06:16
DX: R42 Dizziness and giddiness (principal); Z71.6 Tobacco abuse counseling; I10 Essential (primary) hypertension; F17.210 Nicotine dependence, cigarettes, uncomplicated; I25.2 Old myocardial infarction
CPT/HCPCS: 36415; 70450; 80053; 81003; 81015; 84484; 85025; 96360; 99406; J8597